=== PATIENT | male | born 1970 | race African-American/Black ===

== ENCOUNTER 2024-10-19 09:12 | Emergency (ER) | payer BC, SELFPAY ==
[2024-10-19 09:34] VITALS: BP 120/73; PULSE 75; RESP 16; TEMP 37.1; O2SAT 98; BMI 22.1
--- NOTE | 2024-10-19 11:55 | ED.DENTAL ---
HPI - Dental/Oral General Chief complaint: Dental/Oral Stated complaint: Facial swelling R side Time Seen by Provider: 10/19/24 11:54 Source: patient Mode of arrival: ambulatory Limitations: no limitations History of Present Illness ED Provider: CABRERA CARRERA Narrative: 53 yo male with no sig PMH here with c/o having 2 months of dental pain no dentist ate last night felt a tooth crack and then developed R sided lower swelling and tooth ache no fevers noted. He has not taken anything for it. He has no diff swallowing or breathing. MD Complaint: tooth pain Location: Tooth # ([id number]) Onset (ago): day(s) (1) Duration: constant Severity: moderate Relieving factors: nothing Exacerbating factors: chewing, cold and heat Context: history of dental caries and poor dental care Associated symptoms: gum swelling Treatment prior to arrival: none Related Data Previous Rx's ?Medication ?Instructions ?Recorded amoxicillin 875 mg-potassium 1 tab PO BID #14 tabs 10/19/24 clavulanate 125 mg tablet Allergies Allergy/AdvReac Type Severity Reaction Status Date / Time bee pollen [BEE STINGS] Allergy Unknown ANAPHYLAXIS Unverified 10/19/24 09:39 Review of Systems Review of Systems: Constitutional : No Fever, No Chills ENT/Mouth : No swallowing difficulty, no change in voice, positive dental pain, positive jaw pain, positive facial swelling Eyes: No Eye Pain, No Swelling Cardiovascular : No Chest Pain, No SOB Respiratory : No Cough, No Sputum Gastrointestinal : No Nausea, No Vomiting, No Diarrhea Genitourinary : No Dysuria Musculoskeletal : No Myalgias Skin : No rash Neuro : No Weakness, No Numbness, No Headache PMFSH Past Medical History Attestation statement: The following information was validated with the patient. Source: old records reviewed Medical History Allergy to bee sting Social History Social History (Updated 10/19/24 @ 11:57 by Marce Gao DO) Patient Tobacco Use Status: Never used Tobacco Physical Exam Vital Signs: Vital Signs: Last Vital Signs Temp 98.7 F 10/19/24 09:34 Pulse 75 10/19/24 09:34 Resp 16 10/19/24 09:34 BP 120/73 10/19/24 09:34 Pulse Ox 98 10/19/24 09:34 O2 Del Method Room Air 10/19/24 09:34 BMI result Body Mass Index 22.1 Appearance: Alert. Oriented X3. No acute distress. Eyes: Pupils equal, round and reactive to light. ENT: Pharynx normal. no trismus no sublingual or submandibular swelling isolated swelling R lower gum line and small swelling on jaw line no abscess to I/D Neck: Normal inspection. Neck supple. CVS: Normal heart rate and rhythm. Pulses normal. Respiratory: No respiratory distress. Breath sounds normal. Abdomen: Soft and nontender. Skin: Skin warm and dry. Normal skin color. Normal skin turgor. Extremities: No lower extremity edema. No calf ttp Neuro: Oriented X 3. No motor deficit. No sensory deficit. CN2-12 intact Medical Decision Making Medical Decision Making MDM Narrative: 53 yo male with no sig PMH here with c/o poor dental care now here with dental abscess he has no trismus and has no resp issues. At this time I cannot I+D the abscessed area there is no pocket on the gum line. Will start on oral antibiotics and refer to dentistry. Differential Diagnosis Differential Diagnoses: The differential diagnosis associated with the presentation includes dental abscess, toothache Admission/Observation Consideration of admission/observation: Escalation of care including admission/observation considered not toxic, clear airway no trismus and no swelling of sublingual or submandibular Prescription Management I considered prescription management with: Antibiotic Discharge Plan Discharge Clinical Impression: Toothache, Dental abscess Patient Disposition: Home, Self-Care Instructions: Dental Abscess (ED), Toothache (ED) Additional Instructions: follow up with dentist as soon as possible return for any worsening symptoms or concerns such as increased pain or swelling unable to open the mouth On amoxicillin-clavulanate, softer bowel movements are to be expected. Call your provider if you move your bowels more than 4 times a day, your bowel movements are almost all liquid, or you get a rash.? Prescriptions: New amoxicillin-pot clavulanate 875-125 mg tablet 1 tab PO BID Qty: 14 0RF Stand Alone Forms: Work/School Release Print Language: [place] Island[place]
--- NOTE | 2024-10-19 11:57 | PC.NURSE ---
being evaluated by Dr. Gao from triage. Discharged by Dr. Gao
== END 2024-10-19 12:17 | disposition home or self-care (01) ==
LOC: HO.ED 12:04
PROVIDERS: Emergency Provider Emergency Medicine
DX: K04.7 Periapical abscess without sinus (principal); K08.89 Other specified disorders of teeth and supporting structures
CPT/HCPCS: 99281; 99283